=== PATIENT | female | born 1955 | race Two or more races ===

== ENCOUNTER 2021-05-30 09:13 | Emergency (ER) | payer OTHER ==
[~2021-05-30] VITALS: Ht 167.6 cm; Wt 86.2 kg
[2021-05-30] MEDS ORDERED: DICLOFENAC POTA50 MG PO (14:31)
[2021-05-30] MEDS ORDERED: ORPHENADRINE C100 MG PO (14:31)
== END 2021-05-30 16:13 | disposition home or self-care (01) ==
LOC: ER 09:13
DX: I87.2 Venous insufficiency (chronic) (peripheral) (principal); R25.2 Cramp and spasm; M79.661 Pain in right lower leg

== ENCOUNTER 2021-06-12 09:01 | Outpatient (CLI) | payer OTHER ==
[~2021-06-12 09:01] MED LIST: DICLOFENAC POTA50 MG PO; ORPHENADRINE C100 MG PO
== END 2021-06-12 09:04 | disposition home or self-care (01) ==
LOC: NUCLEAR 09:01
PROVIDERS: ATTEND Internal Medicine
DX: I82.401 Acute embolism and thrombosis of unspecified deep veins of right lower extremity (principal)

== ENCOUNTER 2023-11-20 08:13 | Outpatient (CLI) | payer OTHER | END 2023-11-20 10:00 | disposition home or self-care (01) | LOC: WOUND MED 08:13 | PROVIDERS: ATTEND Specialist | DX: L97.322 Non-pressure chronic ulcer of left ankle with fat layer exposed (principal) | CPT/HCPCS: 11042; A4927; A6219; A6223; G0463 ==